=== PATIENT | female | born 1975 | race African-American/Black ===

== ENCOUNTER 2018-02-27 00:11 | Emergency (ER) | payer OTHER ==
[~2018-02-27] VITALS: Ht 165.1 cm; Wt 81.7 kg
[2018-02-27 02:53] VITALS: BP 149/76
== END 2018-02-27 02:54 | disposition home or self-care (01) ==
LOC: ER 00:11
DX: S61.411A Laceration without foreign body of right hand, initial encounter (principal); I10 Essential (primary) hypertension; W26.8XXA Contact with other sharp object(s), not elsewhere classified, initial encounter; Y92.89 Other specified places as the place of occurrence of the external cause; Y93.89 Activity, other specified; Y99.8 Other external cause status